=== PATIENT | female | born 1985 | race Caucasian/White ===

== ENCOUNTER 2019-07-15 00:24 | Emergency (ER) | payer MEDICAID ==
[~2019-07-15] VITALS: Ht 157.5 cm; Wt 90.7 kg
[2019-07-15 00:28] VITALS: BP 135/81
--- NOTE | 2019-07-15 00:28 | NUR ---
pt arrived to ed c/o numbness to left side facail and heartburn x 2 weeks. rates pain 10/10 anddescribes itas sharp. no faical dropping noted. motor and sensory intact. vss. abd is soft, round, active bs. nontenderness. pt states heartburn starts after she eats and at night. 3mm brisk perrla. no otc med taken. nka. no pmh.
--- NOTE | 2019-07-15 00:28 | NUR ---
TO BED # 08 AMBULATORY
[2019-07-15] MEDS ORDERED: DICYCLOMINE HCL LIQUID 20 MG, ALUMINUM HYD/MAG/SIMETHICONE 30 ML, LIDOCAINE VISCOUS 2% ... PO ONE ×3 (01:30)
[2019-07-15 01:41] VITALS: BP 135/81
--- NOTE | 2019-07-15 01:41 | NUR ---
Patient discharged with v/s stable. Written and verbal after care instructions given and explained. Patient alert, oriented and verbalized understanding of instructions. Ambulatory with steady gait. All questions addressed prior to discharge. ID band removed. Patient advised to follow up with PMD. Rx of nexium given. Patient educated on indication of medication including possible reaction and side effects. Opportunity to ask questions provided and answered.
== END 2019-07-15 01:41 | disposition home or self-care (01) ==
LOC: MED 00:24
DX: K21.9 Gastro-esophageal reflux disease without esophagitis (principal)
CPT/HCPCS: 99283

== ENCOUNTER 2019-10-31 23:04 | Emergency (ER) | payer MEDICAID ==
[~2019-10-31] VITALS: Ht 154.9 cm; Wt 90.7 kg
[2019-10-31 23:15] VITALS: BP 126/70
--- NOTE | 2019-10-31 23:18 | NUR ---
TO LOBBY A/W BED AMBULATORY
--- NOTE | 2019-11-01 01:38 | NUR ---
PT AMBULATED TO BED 5 WITH STEADY GAIT.
--- NOTE | 2019-11-01 01:40 | NUR ---
PT 34 Y/O FEMALE BIB SELF FOR C/O 06/02 HEART BURN. "IT IS HARD TO GO TO SLEEP." PT STATES SHE HAS BEEN FEELING HEART BURN X 1 WEEK AND PAIN IS USUALLY FOLLOWED BY EATTING [employer]ATT[employer] FOODS. PT DENIES TAKING ANY MEDICATIONS TO HELP WITH PAIN. PT ADMITS TO SMOKING, "NOT EVERY DAY BUT MORE SOCIALLY." DENIES N/V/D. RESPIRATIONS ARE EVEN AND UNLABORED. SKIN IS WARM AND DRY TO TOUCH. VSS. MED HX: NONE ALLERGIES: NKA
[2019-11-01] MEDS ORDERED: DICYCLOMINE HCL LIQUID 20 MG, ALUMINUM HYD/MAG/SIMETHICONE 30 ML, LIDOCAINE VISCOUS 2% ... PO ONE ×3 (02:05)
[2019-11-01] MEDS ORDERED: ALUMINUM HYD/MAG/SIMETHICONE 30 ML UDC ONE (02:09)
[2019-11-01] MEDS ORDERED: LIDOCAINE VISCOUS 2% 20 ML UDC ONE (02:09)
[2019-11-01] MEDS ORDERED: DICYCLOMINE HCL LIQUID 10 MG/5 ML UDC ONE (02:09)
--- NOTE | 2019-11-01 02:49 | NUR ---
PT STATES HEART BURN PAIN HAS DECREASED FROM 10/10 TO 0/10. " I FEEL A LOT BETTER NOW."
[2019-11-01 03:50] VITALS: BP 124/88
--- NOTE | 2019-11-01 03:50 | NUR ---
Patient discharged with v/s stable. Written and verbal after care instructions given and explained. Patient alert, oriented and verbalized understanding of instructions. Ambulatory with steady gait. All questions addressed prior to discharge. ID band removed. Patient advised to follow up with PMD. Rx of OMEPRAZOLE given. Patient educated on indication of medication including possible reaction and side effects. Opportunity to ask questions provided and answered.
== END 2019-11-01 03:50 | disposition home or self-care (01) ==
LOC: MED 23:04
DX: K52.9 Noninfective gastroenteritis and colitis, unspecified (principal); R11.10 Vomiting, unspecified; K21.9 Gastro-esophageal reflux disease without esophagitis
CPT/HCPCS: 93005; 99283

== ENCOUNTER 2022-08-24 15:18 | Emergency (ER) | payer MEDICAID ==
[~2022-08-24] VITALS: Ht 162.6 cm; Wt 81.6 kg
[2022-08-24 15:32] VITALS: BP 174/99
--- NOTE | 2022-08-24 15:37 | NUR ---
Patient ambulated with steady gait to bed 8.
--- NOTE | 2022-08-24 16:02 | NUR ---
VALIDATION INTERN Woodson evaluating patient at bedside.
--- NOTE | 2022-08-24 16:18 | NUR ---
37 y/o female bib self with c/o left side flank pain x today. Patient denies any painful urination or burning. Per patient, urine is foul smelling and cloudy. Patient has 10/10 flank pain. Denies any fever, chills or trauma. Medical History: Denies NKDA
[2022-08-24 16:31] LABS: APPEARANCE,URINE CLEAR (CLEAR); BILIRUBIN,URINE NEGATIVE (NEGATIVE); BLOOD, URINE 3+ (NEGATIVE); COLOR,URINE YELLOW (YELLOW); LEUKOCYTE ESTERASE ,URINE NEGATIVE (NEGATIVE); NITRITE, URINE NEGATIVE (NEGATIVE); UGLUCOSE NEGATIVE (NEGATIVE)
[2022-08-24] MEDS ORDERED: KETOROLAC 30 MG/ML VIAL IM ONE (16:40)
[2022-08-24] MEDS ORDERED: IBUP-2213 PO (16:41)
[2022-08-24 16:49] LABS: RBC,URINE TOO NUMEROUS TO COUN /HPF (0-5); WBC,URINE NONE SEEN /HPF (0-5)
--- NOTE | 2022-08-24 17:00 | NUR ---
Patient discharged with v/s stable. Written and verbal after care instructions given and explained. Patient alert, oriented and verbalized understanding of instructions. Carried with steady gait. All questions addressed prior to discharge. ID band removed. Patient advised to follow up with PMD. Rx of MOTRIN given. Patient educated on indication of medication including possible reaction and side effects. Opportunity to ask questions provided and answered.
== END 2022-08-24 17:00 | disposition home or self-care (01) ==
LOC: MED 15:18
DX: M62.830 Muscle spasm of back (principal); K21.9 Gastro-esophageal reflux disease without esophagitis; Z79.899 Other long term (current) drug therapy
CPT/HCPCS: 81001; 81025; 96372; 99283; J1885